=== PATIENT | female | born 1955 | race Caucasian/White ===

== ENCOUNTER 2025-04-10 20:38 | Emergency (ER) | payer OTHER ==
[2025-04-10 20:45] VITALS: RESP 18; BMI 19.2
[2025-04-10] MEDS ORDERED: ACETAMINOPHEN INJECTION 100 ML ONE (21:05)
[2025-04-10] MEDS: ACETAMINOPHEN 1000 MG/100 ML BAG IVPB ONE (21:13)
[2025-04-10] MEDS: SULFAMETHOXAZOLE/TRIMETHOPRIM 800MG/160MG D.S. TABLET PO ONE (21:14)
[2025-04-10] MEDS: LACTATED RINGERS SOLUTION 1000 ML INFUS.BAG IV ONE (21:14)
[2025-04-10] MEDS: ACETAMINOPHEN 325 MG TABLET (FP) PO ONE (21:14)
[2025-04-10 21:33] LABS: ABSOLUTE IMMATURE GRANULOCYTES 0.01 x10^3/uL (0.0-0.031); BASOPHILS # 0.02 x10^3/uL (0.01-0.08); EOSINOPHIL % 2.6 % (0.7-5.8); EOSINOPHILS # 0.14 x10^3/uL (0.04-0.36); MCHC 32.3 g/dl (32.2-35.5); MEAN CELL VOLUME 80.9 fl (79.4-94.8); MEAN PLT VOLUME 11.1 fl (9.4-12.3); MONOCYTE # 0.43 x10^3/uL (0.24-0.86); MONOCYTE % 7.8 % (4.7-12.5); RDW 14.3 % (12.4-16.4)
[2025-04-10 22:49] LABS: CO2 25.0 mmol/L (21-32); CREATININE 1.0 mg/dl (0.6-1.3); GLUCOSE,RANDOM 109.0 mg/dl (74-106)
[2025-04-10 23:31] LABS: HCV DIAGNOSTIC IN-HOUSE W/RFLX NON-REACTIVE (NONREACTIVE); HIV INTERPRETATION NEGATIVE (NEGATIVE)
[2025-04-12 03:37] VITALS: BP 120/65; PULSE 60; TEMP 98.6
== END 2025-04-11 02:41 | disposition home or self-care (01) ==
LOC: FER 20:38
PROC: 3E033NZ Introduction of Analgesics, Hypnotics, Sedatives into Peripheral Vein, Percutaneous Approach (ICD-10-PCS; principal; 2025-04-10)
DX: R50.9 Fever, unspecified (principal); R63.0 Anorexia; R10.13 Epigastric pain; R30.0 Dysuria; M54.6 Pain in thoracic spine; M25.561 Pain in right knee; M25.562 Pain in left knee
CPT/HCPCS: 36415; 71045-TC-FY; 72129-TC; 74177-TC; 80048; 81003; 81015; 83605; 83690; 84484; 85025; 85027; 86803; 87040; 87086; 87389; 87637-QW; 93005; 99285-25; Q9967